=== PATIENT | male | born 1995 | race Caucasian/White ===

== ENCOUNTER 2025-06-15 07:48 | Emergency (ER) | payer BC, SELFPAY ==
[2025-06-15 07:56] VITALS: BP 131/92; PULSE 82; RESP 12; TEMP 36; O2SAT 98
--- NOTE | 2025-06-15 08:00 | DI.CT_ITS ---
Exam(s) CT ABDOMEN PELVIS W EXAM: CT ABDOMEN PELVIS W CLINICAL HISTORY: Left flank pain TECHNIQUE: Imaging Protocol: Axial computed tomography images with coronal and sagittal reformatted images were created and reviewed. CONTRAST MATERIAL: Intravenous: Omnipaque 350 Contrast volume:75 mL Oral: No COMPARISON: CT ABD PELVIS WITH CONTRAST from 03/28/2017 FINDINGS: ABDOMEN: Lung Bases: No acute abnormality. Liver: Normal density. No measurable mass. Portal, Superior Mesenteric, and Splenic Veins: Unremarkable. Gallbladder and Biliary Tract: No radiodense calculus or dilation. Pancreas: Normal density, no abnormal calcifications or inflammatory process. Spleen: Normal. Adrenals: No masses seen. Kidneys: Normal size, contour and axis. There are 2 nonobstructing stones in the superior pole of the right kidney. The largest measures 4 mm. There is a 4 mm obstructing stone at the left UVJ causing mild hydronephrosis. There nonobstructing stones seen in the lower pole of the left kidney. The largest measures 3 mm. No masses seen. Abdominal Aorta: Abdominal portion non-dilated. Bowel: No obstruction or bowel wall thickening. Appendix is unremarkable. Peritoneal Cavity: No ascites, collection or mesenteric inflammatory response. No free air. Lymph Nodes: Within normal limits. Bones: Within normal limits for the patient's age. 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 Soft Tissues: Unremarkable. PELVIS: Bladder: The urinary bladder is incompletely distended but no gross abnormality is identified. Reproductive Organs: Unremarkable as visualized. Lymph Nodes: Within normal limits. Bones: Within normal limits for the patient's age. IMPRESSION: 1. 4 mm left UVJ stone causing mild hydronephrosis. 2. Bilateral nephrolithiasis. RADIATION DOSE DELIVERED: 538.42mGy.cm Total DLP DATA REPOSITORY: All CT scans at this facility are submitted to the National Radiology Data Registry (NRDR) Dose Index Registry (DIR) with the [employer] (A[employer]). RADIATION OPTIMIZATION: All CT scans at this facility use at least one of these dose optimization techniques: automated exposure control; mA and/or kV adjustment per patient size (includes targeted exams where dose is matched to clinical indication); or iterative reconstruction.
[2025-06-15 08:17] LABS: Abs Immature Grans 0.03 10^3/uL (0.0-0.06); HCT 42.8 % (40.0-50.0); HGB 13.7 g/dL (13.5-17.5); Immature Grans % 0.4 %; MCH 28.2 pg (27.0-33.0); MCHC 32.0 % (32.0-36.0); MCV 88 fL (80-95); MPV 8.8 fL (8.0-11.0); Platelet Count 299 10^3/uL (130-400); RBC 4.86 10^6/uL (4.36-5.78); RDW 12.6 % (11.8-14.1); RDW-SD 40.6 fL; WBC 7.52 10^3/uL (4.4-10.8)
[2025-06-15] MEDS: ACETAMINOPHEN 1,000 MG/100 ML BAG 400 MG IVPB (08:19)
[2025-06-15] MEDS: Normal Saline 1,000 ML 1000 ML IV (08:19)
[2025-06-15] MEDS: Ketorolac 15 MG/ML VIAL IV (08:26)
[2025-06-15] MEDS: Ondansetron 4 MG/2 ML VIAL IVP ×2 (08:26→10:05)
[2025-06-15 08:33] LABS: Lipase 30 U/L (<53)
[2025-06-15 08:35] LABS: ALT 49 U/L (10-49); AST 28 U/L (<34); Albumin 4.3 g/dL (3.4-5.0); Alkaline Phosphatase 75 U/L (46-116); Anion Gap 8.4 mmol/L (3-11); BUN 11 mg/dL (9-23); Bilirubin, Total 0.40 mg/dL (0.2-1.2); CO2 29.6 mmol/L (20.0-31.0); Calcium 8.8 mg/dL (8.3-10.6); Chloride 105 mmol/L (98-107); Glucose 125 mg/dL (74-106); Potassium 3.9 mmol/L (3.5-5.1); Sodium 143 mmol/L (136-145); Total Protein 6.9 g/dL (5.7-8.2)
[2025-06-15] MEDS: Normal Saline - Diluent 50 ML VIAL IJ (09:06)
[2025-06-15] MEDS: Omnipaque 350 MG/ML 100 ML BTL IJ (09:06)
[2025-06-15] MEDS: Normal Saline Flush 10 ML SYR IVP (09:07)
[2025-06-15 09:12] LABS: Glucose Negative (Negative)
[2025-06-15 09:31] LABS: WBC 0-2 HPF (0-5)
[2025-06-15 09:32] LABS: C & S Indicated? No
--- NOTE | 2025-06-15 09:49 | ED.GENADUL_ITS ---
Discharge Plan Disposition Patient Disposition: Home Discharge Details Clinical Impression: Renal colic on left side Primary Care Provider: Karma Cardenas ED Provider: Paramjit Dykes Home Meds and New Rx's Prescriptions: New ibuprofen 600 mg tablet 600 mg PO Q6H PRNQty: 30 0RF tamsulosin [Flomax] 0.4 mg capsule 0.4 mg PO DAILY Qty: 30 0RF ondansetron 4 mg tablet,disintegrating 4 mg PO Q6H PRNQty: 20 0RF Discharge Instructions Instructions: Managing acute pain at home, Kidney Stone, Adult ED Additional Instructions: You have been referred to the urology clinic for follow-up, please ensure to follow-up with them as they may be able to further assist you in diagnosing the underlying cause to your recurrent kidney stones, as as well as other possible treatments should you have difficulty passing the stone. Please take the prescribed Flomax, Zofran, ibuprofen as directed. You have also been prescribed a small amount of morphine for any acute breakthrough pain. Please follow-up with your primary care provider regarding your visit to the emergency department today. Be sure to discuss results of all test performed here today to include radiology, and laboratory testing as well as results for any pending cultures. Should your symptoms worsen, or if you develop new concerning symptoms, please return immediately emergency department for further evaluation. Stand Alone Forms: Portal Information Referrals: Alcides Montenegro MD [ [facility] STAFF PHYSICIAN, Urology] - 2 weeks HPI General Date/Time Provider Initiated Documentation: 06/15/25 08:07 . HPI Narrative: MDM/Narrative: Recurrent kidney stone symptoms. Episode started 30-40 minutes before arrival. Took two ibuprofen but vomited shortly after. Unable to urinate today. Intermittent nausea. Differential Diagnosis: - Nephrolithiasis: Recurrent symptoms. CT scan to assess size and location. Pain management and antiemetic medication. Urine sample for analysis. Referral to urologist. ED Course: - Pain medication administered - Antiemetic medication provided - CT scan ordered - Urine sample collected Clinical Impression: - Left-sided renal colic Disposition: - Discharge Follow-Up: - Referral to urologist for further evaluation and management. This document was created with assistance from FREDI Sharma-. The patient consented to its use. HPI: The patient, with a known history of nephrolithiasis, presents with recurrent symptoms indicative of renal colic. The onset of symptoms occurred last week, characterized by an episode of discomfort lasting approximately one hour, which subsequently resolved. The patient reports a recurrence of symptoms 30-40 minutes prior to arrival at the emergency department today. The pain is localized to the lumbar region and occasionally radiates anteriorly, causing a sensation of pressure. The severity of the pain necessitated medical evaluation. The patient attempted to manage the pain with two doses of ibuprofen but experienced emesis shortly thereafter. There is an absence of pyrexia or rigors. The patient reports anuria today, despite normal micturition the previous night. The patient has a history of nephrolithiasis, with spontaneous passage of calculi and no history of surgical intervention. The patient also reports intermittent nausea. A previous emergency department visit for nephrolithiasis occurred four years ago, during which the patient was informed of the presence of multiple calculi. ROS: Negative besides as mentioned above Exam: Gen: A&O NAD HEENT: NCAT, EOMI, not icteric. External ears normal. No rhinorrhea. Moist mucous membranes. Neck: Supple, full range of motion, no observable masses, No meningeal sign. Lungs: No Respiratory distress. CV: RRR, no edema. Abdomen: Soft, nondistended, No rebound tenderness. MSK: No joint swelling, no redness. Skin: No rashes, petechiae, lesions. Normal color per patient. Neuro: Normal Gait, Grossly intact. Psych: Appropriate for situation. Labs: Laboratory Tests Range/Units 06/15/25 06/15/25 08:05 08:24 WBC (4.4-10.8) 10^3/uL 7.52 RBC (4.36-5.78) 10^6/uL 4.86 Hgb (13.5-17.5) g/dL 13.7 Hct (40.0-50.0) % 42.8 MCV (80-95) fL 88 MCH (27.0-33.0) pg 28.2 MCHC (32.0-36.0) % 32.0 RDW (11.8-14.1) % 12.6 Plt Count (130-400) 10^3/uL 299 MPV (8.0-11.0) fL 8.8 Immature Gran % % 0.4 Neutrophils % % 49.1 Lymphocytes % % 34.4 Monocytes % % 7.4 Eosinophils % % 8.0 Basophils % % 0.7 Nucleated RBC % (0.0-0.3) % 0.0 Absolute Neutrophils (1.2-6.7) 10^3/uL 3.69 Absolute Lymphocytes (1.2-3.4) 10^3/uL 2.59 Absolute Monocytes (0.1-0.8) 10^3/uL 0.56 Absolute Eosinophils (0.0-0.7) 10^3/uL 0.60 Absolute Basophils (0.0-0.2) 10^3/uL 0.05 Sodium (136-145) mmol/L 143 Potassium (3.5-5.1) mmol/L 3.9 Chloride (98-107) mmol/L 105 Carbon Dioxide (20.0-31.0) mmol/L 29.6 Anion Gap (3-11) mmol/L 8.4 BUN (9-23) mg/dL 11 Creatinine (0.73-1.18) mg/dL 1.02 Est GFR (CKD-EPI 2020) (mL/min/1.73m2) 84.87 Glucose (74-106) mg/dL 125 H Calcium (8.3-10.6) mg/dL 8.8 Total Bilirubin (0.2-1.2) mg/dL 0.40 AST (<34) U/L 28 ALT (10-49) U/L 49 Alkaline Phosphatase (46-116) U/L 75 Total Protein (5.7-8.2) g/dL 6.9 Albumin (3.4-5.0) g/dL 4.3 Lipase (<53) U/L 30 Urine Color (Yellow) Yellow Urine Clarity (Clear) Clear Urine pH (5-8) 6.5 Ur Specific [place] (1.005-1.025) 1.025 Urine Protein (Neg-Trace) mg/dL Negative Urine Ketones (Negative) mg/dL Negative Urine Blood (Negative) Moderate H Urine Nitrite (Negative) Negative Urine Bilirubin (Negative) Negative Urine Urobilinogen (Up to 0.2) mg/dL 0.2 Ur Leukocyte Esterase (Negative) Negative Urine RBC (0-2) HPF 10-20 H Urine WBC (0-5) HPF 0-2 Ur Epithelial Cells (Negative) HPF Rare Urine Crystals (Negative) HPF Negative Urine Bacteria (Negative) HPF Rare Urine Mucus (Negative) Moderate Ur Culture Indicated? No Urine Glucose (Negative) mg/dL Negative Radiology: Exam(s) CT ABDOMEN PELVIS W EXAM: CT ABDOMEN PELVIS W CLINICAL HISTORY: Left flank pain TECHNIQUE: Imaging Protocol: Axial computed tomography images with coronal and sagittal reformatted images were created and reviewed. CONTRAST MATERIAL: Intravenous: Omnipaque 350 Contrast volume:75 mL Oral: No COMPARISON: CT ABD PELVIS WITH CONTRAST from 03/28/2017 FINDINGS: ABDOMEN: Lung Bases: No acute abnormality. Liver: Normal density. No measurable mass. Portal, Superior Mesenteric, and Splenic Veins: Unremarkable. Gallbladder and Biliary Tract: No radiodense calculus or dilation. Pancreas: Normal density, no abnormal calcifications or inflammatory process. Spleen: Normal. Adrenals: No masses seen. Kidneys: Normal size, contour and axis. There are 2 nonobstructing stones in the superior pole of the right kidney. The largest measures 4 mm. There is a 4 mm obstructing stone at the left UVJ causing mild hydronephrosis. There nonobstructing stones seen in the lower pole of the left kidney. The largest measures 3 mm. No masses seen. Abdominal Aorta: Abdominal portion non-dilated. Bowel: No obstruction or bowel wall thickening. Appendix is unremarkable. Peritoneal Cavity: No ascites, collection or mesenteric inflammatory response. No free air. Lymph Nodes: Within normal limits. Bones: Within normal limits for the patient's age. 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 Soft Tissues: Unremarkable. PELVIS: Bladder: The urinary bladder is incompletely distended but no gross abnormality is identified. Reproductive Organs: Unremarkable as visualized. Lymph Nodes: Within normal limits. Bones: Within normal limits for the patient's age. IMPRESSION: 1. 4 mm left UVJ stone causing mild hydronephrosis. 2. Bilateral nephrolithiasis. Related Data Home Medications ?Medication ?Instructions ?Recorded ?Confirmed ibuprofen 600 mg tablet 600 mg PO Q6H PRN #30 tabs 1 08/15/24 ondansetron 4 mg disintegrating 4 mg PO Q6H PRN #20 ta bs 06/15/25 tablet tamsulosin 0.4 mg capsule (Flomax) 0.4 mg PO DAILY #30 caps 06/15/25 Previous Rx's ?Medication ?Instructions ?Recorded ibuprofen 600 mg tablet 600 mg PO Q6H PRN #30 tabs 1 08/15/24 ondansetron 4 mg disintegrating 4 mg PO Q6H PRN #20 ta bs 06/15/25 tablet tamsulosin 0.4 mg capsule (Flomax) 0.4 mg PO DAILY #30 caps 06/15/25 Allergies Allergy/AdvReac Type Severity Reaction Status Date / Time No Known Allergies Allergy Verified 06/15/25 08:00 General Stated Complaint: FlankPain HEENA: 3 Course Vital Signs Vital signs: Vital Signs Temperature 36.0 C L 06/15/25 07:56 Pulse 82 06/15/25 07:56 Respiratory Rate 12 06/15/25 07:56 Blood Pressure 131/92 H 06/15/25 07:56 Pulse Oximetry 98 06/15/25 07:56 Temperature 36.0 C L 06/15/25 07:56 Temperature Source Temporal Artery Scan 06/15/25 07:56 Pulse 82 06/15/25 07:56 Respiratory Rate 12 06/15/25 07:56 Blood Pressure 131/92 H 06/15/25 07:56 Blood Pressure Position Sitting 06/15/25 07:56 Pulse Oximetry 98 06/15/25 07:56 Oxygen Delivery Method Room Air 06/15/25 07:56 Oxygen Flow Rate 0 06/15/25 07:56 Lab/Test Results Lab/Test Results: Laboratory Tests Range/Units 06/15/25 06/15/25 08:05 08:24 WBC (4.4-10.8) 10^3/uL 7.52 RBC (4.36-5.78) 10^6/uL 4.86 Hgb (13.5-17.5) g/dL 13.7 Hct (40.0-50.0) % 42.8 MCV (80-95) fL 88 MCH (27.0-33.0) pg 28.2 MCHC (32.0-36.0) % 32.0 RDW (11.8-14.1) % 12.6 Plt Count (130-400) 10^3/uL 299 MPV (8.0-11.0) fL 8.8 Immature Gran % % 0.4 Neutrophils % % 49.1 Lymphocytes % % 34.4 Monocytes % % 7.4 Eosinophils % % 8.0 Basophils % % 0.7 Nucleated RBC % (0.0-0.3) % 0.0 Absolute Neutrophils (1.2-6.7) 10^3/uL 3.69 Absolute Lymphocytes (1.2-3.4) 10^3/uL 2.59 Absolute Monocytes (0.1-0.8) 10^3/uL 0.56 Absolute Eosinophils (0.0-0.7) 10^3/uL 0.60 Absolute Basophils (0.0-0.2) 10^3/uL 0.05 Sodium (136-145) mmol/L 143 Potassium (3.5-5.1) mmol/L 3.9 Chloride (98-107) mmol/L 105 Carbon Dioxide (20.0-31.0) mmol/L 29.6 Anion Gap (3-11) mmol/L 8.4 BUN (9-23) mg/dL 11 Creatinine (0.73-1.18) mg/dL 1.02 Est GFR (CKD-EPI 2020) (mL/min/1.73m2) 84.87 Glucose (74-106) mg/dL 125 H Calcium (8.3-10.6) mg/dL 8.8 Total Bilirubin (0.2-1.2) mg/dL 0.40 AST (<34) U/L 28 ALT (10-49) U/L 49 Alkaline Phosphatase (46-116) U/L 75 Total Protein (5.7-8.2) g/dL 6.9 Albumin (3.4-5.0) g/dL 4.3 Lipase (<53) U/L 30 Urine Color (Yellow) Yellow Urine Clarity (Clear) Clear Urine pH (5-8) 6.5 Ur Specific [place] (1.005-1.025) 1.025 Urine Protein (Neg-Trace) mg/dL Negative Urine Ketones (Negative) mg/dL Negative Urine Blood (Negative) Moderate H Urine Nitrite (Negative) Negative Urine Bilirubin (Negative) Negative Urine Urobilinogen (Up to 0.2) mg/dL 0.2 Ur Leukocyte Esterase (Negative) Negative Urine RBC (0-2) HPF 10-20 H Urine WBC (0-5) HPF 0-2 Ur Epithelial Cells (Negative) HPF Rare Urine Crystals (Negative) HPF Negative Urine Bacteria (Negative) HPF Rare Urine Mucus (Negative) Moderate Ur Culture Indicated? No Urine Glucose (Negative) mg/dL Negative PFSH All Active Problems (Updated 06/15/25 @ 09:52 by Paramjit Dykes MD) Renal colic on left side (Acute) Headache (Acute) GI bleed (Acute) Medical History (Updated 06/15/25 @ 09:52 by Paramjit Dykes MD) GI bleed EGD normal-03/29/17 [place]-mild inflammation in the TI and rectum. No active bleeding 03/30/17 Surgical History EGD - MAC (03/29/17) Colonoscopy - MAC (03/29/17) Social History Smoking/Tobacco Use Status: Never Smoking risk assessment performed?: Yes Do you feel safe in your relationship?: Yes
[2025-06-15] MEDS: MORPHine 2 MG/ML SYR 6 MG IVP (10:15)
[2025-06-15 10:20] VITALS: BP 132/77; PULSE 73; RESP 16; O2SAT 100
[2025-06-15] MEDS: MORPHine IR 15 MG TAB, 4 TABS/BTL PO (12:09)
[2025-06-15 12:14] VITALS: BP 131/68; PULSE 76; RESP 10; O2SAT 96
== END 2025-06-15 12:16 | disposition home or self-care (01) ==
PROVIDERS: Emergency Provider General Practice; PCP Family Medicine
DX: N23 Unspecified renal colic (principal); R11.0 Nausea; R34 Anuria and oliguria
CPT/HCPCS: 99283; 99285; 36415; 96375; 96376; 80053; 83690; 96365; 96366; 74177; 81003; 81015; 85025; J0131; J1885; J2270; J2405; J3490